=== PATIENT | male | born 1955 | race Caucasian/White ===

== ENCOUNTER 2018-12-10 05:30 | Day surgery (SDC) | payer BC, OTHER ==
[~2018-12-10] VITALS: Ht 188 cm; Wt 97.0 kg
[2018-12-10] MEDS ORDERED: LACTATED RINGERS 1,000 ML IV SCH (06:13)
[2018-12-10] MEDS ORDERED: MIDAZOLAM 1 MG/ML, 2ML ONE (06:30)
[2018-12-10] MEDS ORDERED: FENTANYL PF 250 MCG/5ML ONE (06:30)
[2018-12-10 06:33] VITALS: BP 124/81
[2018-12-10] MEDS ORDERED: ATEN50TA41 PO (06:42)
[2018-12-10] MEDS ORDERED: LISI-170 PO (06:42)
[2018-12-10] MEDS ORDERED: LIDOCAINE 1%-EPI 1:100K, 20ML ONE (06:44)
[2018-12-10 06:51] LABS: ALANINE AMINOTRANSFERASE 22 U/L (12-78); ALBUMIN 3.8 g/dL (3.4-5.0); ANION GAP 8 mmol/L (5-15); CALCIUM 8.8 mg/dL (8.5-10.1); CHLORIDE 111 mmol/L (98-107); CREATININE 0.98 mg/dL (0.7-1.3)
[2018-12-10 06:54] LABS: ALKALINE PHOSPHATASE 67 U/L (45-117); BILIRUBIN,TOTAL 0.7 mg/dL (0.2-1.0); TOTAL PROTEIN 7.1 g/dL (6.4-8.2)
[2018-12-10] MEDS ORDERED: HYDROmorphone 2 MG/ML, 1ML IVPush PRN (07:00)
[2018-12-10] MEDS ORDERED: ACETAMINOPHEN 325 MG TABLET PO PRN (07:00)
[2018-12-10] MEDS ORDERED: ONDANSETRON 2MG/ML, 2ML IV PRN (07:00)
[2018-12-10] MEDS ORDERED: OXYcodone 5 MG/5 ML ORAL.SOL UDC PO PRN (07:00)
[2018-12-10] MEDS ORDERED: hydrALAzine 20 MG/ML, 1ML IV PRN (07:00)
[2018-12-10] MEDS ORDERED: MEPERIDINE/PF 25MG/ML,1ML IVPush PRN (07:00)
[2018-12-10] MEDS ORDERED: FENTANYL PF 100 MCG/2ML IV PRN (07:00)
[2018-12-10] MEDS ORDERED: MORPHINE SULFATE 4 MG/ML, 1ML IVPush PRN (07:00)
[2018-12-10] MEDS ORDERED: LABETALOL 5MG/ML, 20ML IV PRN (07:00)
[2018-12-10] MEDS ORDERED: PHENYLEPHRINE 10 MG/ML ONE (07:17)
[2018-12-10] MEDS ORDERED: GLYCOPYRROLATE 0.2MG/1ML, 5ML ONE (07:47)
[2018-12-10] MEDS ORDERED: PROPOFOL 10 MG/ML, 20ML ONE (07:47)
[2018-12-10] MEDS ORDERED: NEOSTIGMINE 1 MG/ML, 10ML ONE (07:47)
[2018-12-10] MEDS ORDERED: ROCURONIUM 10MG/ML,5ML ONE (07:47)
[2018-12-10] MEDS ORDERED: CEFAZOLIN 1,000 MG ONE (07:47)
[2018-12-10] MEDS ORDERED: NEOSPORIN OINT, 15GM ONE (08:01)
[2018-12-10] MEDS ORDERED: ACETAMINOPHEN 650 MG/20.3 ML UDC ONE (08:35)
[2018-12-10] MEDS ORDERED: ACETAMINOPHEN 325 MG TABLET ONE (08:36)
== END 2018-12-10 10:00 | disposition home or self-care (01) ==
LOC: OUT 05:30
PROVIDERS: ATTEND Otolaryngology
DX: C43.39 Malignant melanoma of other parts of face (principal); Z85.820 Personal history of malignant melanoma of skin
CPT/HCPCS: 14040; 36415; 80053; 88307; 93005; J0690; J2250; J2370; J2704; J2710; J3010; J3490; J7120